=== PATIENT | female | born 1980 | race Caucasian/White ===

== ENCOUNTER 2018-03-07 16:35 | Emergency (ER) | payer MEDICAID ==
[2018-03-07] MEDS ORDERED: BENZONATATE 100 MG CAP PO ONE (19:04)
[2018-03-07] MEDS ORDERED: DOXYCYCLINE HYCLATE 100 MG CAP/TAB PO ONE (19:04)
--- NOTE | 2018-03-07 19:04 | EDPHY ---
H & P Stated Complaint: URI SYMPTOMS SINCE FRIDAY NOW WITH N/V Time Seen by Provider: 03/07/18 18:36 HPI/ROS: HPI: This is a 37-year-old female who presents with Chief Complaint: URI SYMPTOMS SINCE FRIDAY NOW WITH N/V Location: Chest Quality: Cough Duration: 5 days Signs and Symptoms: no fever, no nausea, no vomiting, no diarrhea, no urinary symptoms, no chest pain, no shortness of breath, no wheezing, + cough, no sore throat, no neck stiffness, no joint pain, no swollen glands, no ear pain, no rash Timing: Acute Severity: Moderate Context: Patient reports that she is a light smoker presents with nasal congestion and sinus drainage approximately 5-7 days ago and then for the last 5 days she has been complaining of a productive cough with green sputum. She reports she is coughing so hard that she feels nauseous and vomits. She denies fever, neck stiffness, sore throat. Last menstrual period is over 2 months ago. Modifying Factors: [id number] cold medications with minimal relief Comment: ROS: A comprehensive 10 system review of systems is otherwise negative aside from elements mentioned in the history of present illness. MEDICAL/SURGICAL/SOCIAL HISTORY: Medical history: Generally healthy. Does not take any regular medications. LMP over 28 days ago. Surgical history: Denies Social history: Light smoker. Denies drug use. Family history noncontributory. CONSTITUTIONAL: Tearful, nontoxic-appearing, middle-aged white female, awake and alert, no obvious distress HEENT: Atraumatic and normocephalic, PERRL, EOMI. Nares patent; no rhinorrhea; no nasal mucosal edema. Tympanic membranes clear. Oropharynx clear, no exudate and moist pink mucosa. Airway patent. No lymphadenopathy. No meningismus. Cardiovascular: Normal S1/S2, regular rate, regular rhythm, without murmur rub or gallop. PULMONARY/CHEST: Symmetrical and nontender. Clear to auscultation bilaterally. Good air movement. No accessory muscle usage. ABDOMEN: Soft, nondistended, nontender, no rebound, no guarding, no peritoneal signs, no masses or organomegaly. No CVAT. EXTREMITIES: 2/2 pulses, strength 5/5, no deformities, no clubbing, no cyanosis or edema. NEUROLOGICAL: no focal neuro deficits. GCS 15. SKIN: Warm and dry, no erythema. no rash. Good capillary refill. Source: Patient Exam Limitations: No limitations - Personal History LMP (Females 10-55): Over 28 Days Ago Current Tetanus Diphtheria and Acellular Pertussis (TDAP): Yes - Medical/Surgical History Hx Asthma: No Hx Chronic Respiratory Disease: No Hx Diabetes: No Hx Cardiac Disease: No Hx Renal Disease: No Hx Cirrhosis: No Hx Alcoholism: No Hx HIV/AIDS: No Hx Splenectomy or Spleen Trauma: No Other PMH: DENIES - Social History Smoking Status: Light smoker Constitutional: Initial Vital Signs Temperature (C) 36.7 C 03/07/18 16:42 Heart Rate 70 03/07/18 16:42 Respiratory Rate 18 03/07/18 16:42 Blood Pressure 97/65 L 03/07/18 16:42 O2 Sat (%) 96 03/07/18 16:42 O2 Delivery Mode Room Air Allergies/Adverse Reactions: No Known Allergies Allergy (Unverified 03/07/18 16:42) Home Medications: Medication Instructions Recorded Doxycycline Hyclate 100 mg PO BID 7 Days tablet 03/07/18 Ondansetron Odt [Zofran Odt 4 mg 4 mg PO Q4 PRN #12 tab 03/07/18 (*)] Medical Decision Making ED Course/Re-evaluation: Vital signs reviewed and stable upon arrival. Chest x-ray and Tessalon Perles and doxycycline ordered. On The way to Radiology patient informed tech that she may be . Urine ordered and positive. Chest x-ray discontinued as no hypoxia and clear lung sounds. Doxycycline is class B and safe for . Tessalon Perles class C and not given or prescribed. Patient asking for Zofran at discharge due to nausea; prescription given. This patient was seen under the supervision of my secondary supervising physician. I evaluated care for this patient independently. Discussed this patient with Dr. Callejas who did not see the patient. Differential Diagnosis: Differential diagnosis includes but is not limited to pneumonia, bronchitis, sinusitis, upper respiratory infection, viral syndrome. - Data Points Medications Given: Discontinued Medications Benzonatate (Tessalon Pearles) 200 mg PO EDNOW ONE Stop: 03/07/18 19:05 Last Admin: 03/07/18 19:21 Dose: 200 mg Departure - Departure Disposition: Home, Routine, Self-Care Clinical Impression: state, incidental, Bronchitis Condition: Good Instructions: Doxycycline (By mouth), (ED), Acute Bronchitis (ED) Additional Instructions: Please start taking vitamin daily and stop smoking cigarettes while . Establish care with OBGYN. Take antibiotic as directed. Do not skip a dose. Return to the ER immediately if you experience fevers/chills, shortness of breath, abdominal pain, inability to tolerate oral intake, or any other symptoms that concern you. Referrals: [facility] [Other] - As per Instructions [facility],. [Clinic] - As per Instructions Alissa Blancas DO [Doctor of Osteopathy] - As per Instructions Prescriptions: Doxycycline Hyclate 100 mg PO BID 7 Days tablet Ondansetron Odt [Zofran Odt 4 mg (*)] 4 mg PO Q4 PRN #12 tab PRN Reason: Nausea/Vomiting, Use 1st
[2018-03-07] MEDS ORDERED: DOXYCYCLINE 100 MG PREPACK#2 BTL TAKEHOME ONE (19:24)
[2018-03-07 19:43] VITALS: BP 109/70
== END 2018-03-07 19:40 | disposition home or self-care (01) ==
DX: J40 Bronchitis, not specified as acute or chronic (principal); Z33.1 Pregnant state, incidental; F17.200 Nicotine dependence, unspecified, uncomplicated